=== PATIENT | male | born 1975 | race Caucasian/White ===

== ENCOUNTER → 2020-09-15 | Emergency (ER) | payer OTHER ==
[~2020-09-15] VITALS: Ht 182.9 cm; Wt 95.3 kg
[~2020-09-15] MED LIST: AUGMENTIN 875875 MG PO; CIPRO500 MG PO; FLOMAX0.4 MG PO; IBUPROFEN 800800 MG PO; MULTIVITAMINS1 EAC7; PYRIDIUM200 MG PO; ULTRAM50 MG PO
[2020-09-15 21:56] VITALS: BP 148/89
== END ==
LOC: M.ERS 20:43
DX: S62.324A Displaced fracture of shaft of fourth metacarpal bone, right hand, initial encounter for closed fracture (principal); W00.0XXA Fall on same level due to ice and snow, initial encounter; Y93.89 Activity, other specified; Y92.89 Other specified places as the place of occurrence of the external cause; Y99.8 Other external cause status